=== PATIENT | male | born 1960 | race Caucasian/White ===

== ENCOUNTER 2018-01-20 16:27 | Emergency (ER) | payer OTHER ==
--- NOTE | 2018-01-20 17:09 | RAD ---
FRONTAL RADIOGRAPH CHEST: Date: 01-20-18 Comparison: 05-04-16 History: Chest pain, left arm pain. FINDINGS: There is no pneumothorax, focal consolidation, or alveolar edema. Heart and mediastinal contours are within normal limits. IMPRESSION: No acute findings. POS: [facility]
[2018-01-20 17:17] LABS: #Eosinphils 0.1 thou/uL (0.0-0.7); #Lymphocytes 1.3 thou/uL (1.20-3.40); #Monocytes 0.4 thou/uL (0.11-0.59); %Basophils 0.1 % (0.0-1.0); %Lymphocytes 26.2 % (21.0-51.0); %Monocytes 8.8 % (0.0-10.0); %Neutrophils 62.9 % (42.0-75.0); Hemoglobin 15.7 g/dL (14.0-18.0); Mean Corpuscular HGB CONC 35.2 g/dL (32.0-36.0); Mean Corpuscular Hemoglobin 31.2 pg (27.0-31.0); Mean Corpuscular Volume 88.8 fl (80.0-94.0); Mean Platelet Volume 7.3 fL (7.4-10.4); Platelet Count 152 thou/uL (130-400); Red Blood Cell (RBC) Count 5.04 mill/uL (4.70-6.10); White Blood Cell (WBC) Count 4.8 thou/uL (4.8-10.8)
[2018-01-20 17:40] LABS: ALT (SGPT) 25 U/L (8-55); AST (SGOT) 20 U/L (5-34); Albumin 4.5 g/dL (3.5-5.0); Alkaline Phosphatase 108 U/L (40-150); Anion Gap 10 mmol/L (10-20); BUN (Urea Nitrogen) 16 mg/dL (8.4-25.7); Bilirubin, Total 0.7 mg/dL (0.2-1.2); CK (CPK) 161 U/L (30-200); Calc. Creatinine Clearance 0 mL/min (70-130); Calcium 9.6 mg/dL (7.8-10.44); Carbon Dioxide 24 mmol/L (22-29); Chloride 107 mmol/L (98-107); Estimated GFR-MDRD 76; Glucose 100 mg/dL (70-105); Lipase 22 U/L (8-78); Potassium 4.1 mmol/L (3.5-5.1); Protein, Total 7.5 g/dL (6.0-8.3); Sodium 137 mmol/L (136-145)
[2018-01-20 17:49] LABS: CKMB 1.1 ng/mL (0-6.6); Troponin I Less than 0.010 ng/mL (< 0.028)
[2018-01-20] MEDS ORDERED: Nitroglycerin 0.4 MG TAB (25 Tab Bottle) ONE (19:14)
[2018-01-20 20:43] LABS: Troponin I 0.012 ng/mL (< 0.028)
--- NOTE | 2018-02-20 15:05 | EKG ---
Test Reason : Blood Pressure : / mmHG Vent. Rate : 056 BPM Atrial Rate : 056 BPM P-R Int : 176 ms QRS Dur : 090 ms QT Int : 420 ms P-R-T Axes : 033 014 016 degrees QTc Int : 405 ms Sinus bradycardia Otherwise normal ECG Confirmed by KAILEE MEZA ([id number]), publications editor PAYTON SPENCER ([id number]) on 02/20/2018 3:04:13 PM Referred By: Confirmed By:KAILEE MEZA
== END 2018-01-20 21:43 | disposition home or self-care (01) ==
LOC: ERS 16:27
DX: R07.89 Other chest pain (principal); E78.5 Hyperlipidemia, unspecified; F17.220 Nicotine dependence, chewing tobacco, uncomplicated; I25.10 Atherosclerotic heart disease of native coronary artery without angina pectoris; I25.2 Old myocardial infarction; Z79.82 Long term (current) use of aspirin; Z79.899 Other long term (current) drug therapy
CPT/HCPCS: 36415; 71045; 80053; 82550; 82553; 83690; 84484; 85025; 93005

== ENCOUNTER 2022-07-03 22:05 | Observation (INO) | payer OTHER ==
[2022-07-03] MEDS ORDERED: Ketorolac Tromethamine 30 MG/ML VIAL ONE (23:03)
[2022-07-03] MEDS ORDERED: HYDROmorphone 0.5 MG/0.5 ML SYRINGE ONE (23:03)
[2022-07-03 23:25] LABS: #Eosinphils 0.1 thou/uL (0.0-0.7); #Monocytes 0.6 thou/uL (0.11-0.59); #Neutrophils 3.3 thou/uL (1.40-6.50); %Basophils 0.3 % (0.0-1.0); %Eosinophils 1.7 % (0.0-10.0); %Lymphocytes 19.9 % (21.0-51.0); %Monocytes 11.2 % (0.0-10.0); %Neutrophils 66.9 % (42.0-75.0); Hemoglobin 15.7 g/dL (14.0-18.0); Mean Corpuscular HGB CONC 34.2 g/dL (32.0-36.0); Mean Corpuscular Hemoglobin 32.1 pg (27.0-31.0); Mean Corpuscular Volume 93.9 fL (78.0-98.0); Mean Platelet Volume 7.6 fL (7.4-10.4); Platelet Count 139 thou/uL (130-400); RBC Distribution Width 12.3 % (11.5-14.5); Red Blood Cell (RBC) Count 4.89 mill/uL (4.70-6.10); White Blood Cell (WBC) Count 4.9 thou/uL (4.8-10.8)
[2022-07-03] MEDS ORDERED: Fentanyl 100 MCG/2 ML VIAL ONE (23:30)
[2022-07-04 00:10] LABS: ALT (SGPT) 18 U/L (8-55); AST (SGOT) 21 U/L (5-34); Albumin 4.5 g/dL (3.4-4.8); Alkaline Phosphatase 100 U/L (40-110); Anion Gap 17 mmol/L (10-20); BUN (Urea Nitrogen) 11 mg/dL (8.4-25.7); Bilirubin, Total 0.8 mg/dL (0.2-1.2); Calc. Creatinine Clearance 0 mL/min (70-130); Calcium 9.5 mg/dL (7.8-10.44); Carbon Dioxide 23 mmol/L (23-31); Chloride 102 mmol/L (98-107); Estimated GFR 85; Globulin 2.7 g/dL (2.4-3.5); Glucose 92 mg/dL (80-115); Potassium 4.3 mmol/L (3.5-5.1); Protein, Total 7.2 g/dL (5.8-8.1); Sodium 138 mmol/L (136-145)
[2022-07-04] MEDS ORDERED: HYDROcodone/Acetaminophen 5/325 mg Tablet PO PRN (02:36)
[2022-07-04] MEDS ORDERED: Ondansetron ODT 4 MG TAB PO PRN (02:36)
[2022-07-04] MEDS ORDERED: Ondansetron PF 4 MG/2 ML Vial IVP PRN (02:36)
[2022-07-04] MEDS ORDERED: Acetaminophen 325 MG TAB PO PRN (02:36)
[2022-07-04] MEDS: Fentanyl 100 MCG/2 ML VIAL SLOW IVP PRN ×2 (03:39→08:55)
[2022-07-04 04:26] VITALS: BMI 32.8
[2022-07-04 05:02] LABS: #Basophils 0.1 thou/uL (0.0-0.2); #Eosinphils 0.1 thou/uL (0.0-0.7); #Monocytes 0.5 thou/uL (0.11-0.59); #Neutrophils 3.1 thou/uL (1.40-6.50); %Basophils 1.2 % (0.0-1.0); %Eosinophils 1.5 % (0.0-10.0); %Monocytes 9.4 % (0.0-10.0); %Neutrophils 65.8 % (42.0-75.0); Hemoglobin 13.7 g/dL (14.0-18.0); Mean Corpuscular HGB CONC 34.7 g/dL (32.0-36.0); Mean Corpuscular Hemoglobin 32.6 pg (27.0-31.0); Mean Corpuscular Volume 93.8 fL (78.0-98.0); Mean Platelet Volume 7.3 fL (7.4-10.4); Platelet Count 137 thou/uL (130-400); RBC Distribution Width 12.4 % (11.5-14.5); Red Blood Cell (RBC) Count 4.22 mill/uL (4.70-6.10); White Blood Cell (WBC) Count 4.7 thou/uL (4.8-10.8)
[2022-07-04 05:12] LABS: SARS-CoV-2 NAA Rapid Test Not Detected (NotDetected)
[2022-07-04] MEDS: Morphine 4 MG/ML VIAL SLOW IVP PRN (05:18)
[2022-07-04] MEDS: Ketorolac Tromethamine 30 MG/ML VIAL IVP SCH ×2 (05:19→11:41)
[2022-07-04 05:23] LABS: Anion Gap 13 mmol/L (10-20); BUN (Urea Nitrogen) 12 mg/dL (8.4-25.7); Calc. Creatinine Clearance 109 mL/min (70-130); Calcium 9.3 mg/dL (7.8-10.44); Carbon Dioxide 25 mmol/L (23-31); Chloride 102 mmol/L (98-107); Estimated GFR 88; Glucose 114 mg/dL (80-115); Sodium 136 mmol/L (136-145)
[2022-07-04] MEDS ORDERED: Zolpidem Tartrate 5 MG TAB PO PRN (13:16)
[2022-07-04] MEDS: HYDROmorphone 0.5 MG/0.5 ML SYRINGE SLOW IVP PRN ×2 (14:24→20:19)
[2022-07-04] MEDS ORDERED: Clindamycin/D5W 900 MG in Premix Bag 1 BAG IVPB SCH (15:00)
[2022-07-04] MEDS: HYDROcodone/Acetaminophen 5/325 mg Tablet PO PRN ×2 (16:08→23:41)
[2022-07-04] MEDS: Rosuvastatin 20 MG TAB PO SCH (20:18)
[2022-07-05] MEDS: Morphine 4 MG/ML VIAL SLOW IVP PRN ×5 (04:36→23:41)
[2022-07-05] MEDS ORDERED: Vancomycin 1.5 GRAM/300 ML BAG 1.5 GM in Premix Bag 1 BAG IVPB SCH (07:15)
[2022-07-05] MEDS ORDERED: Fentanyl 100 MCG/2 ML VIAL SLOW IVP PRN ×2 (07:16→11:50)
[2022-07-05] MEDS ORDERED: CEFAZOLIN 2 GM in Sodium Chloride 0.9% 100 ML IVPB SCH (07:30)
[2022-07-05] MEDS: Losartan 25 MG TAB PO SCH (07:46)
[2022-07-05] MEDS ORDERED: Aspirin 81 mg Enteric Coated Tablet PO SCH (09:00)
[2022-07-05] MEDS ORDERED: Vancomycin 1.5 GRAM/300 ML BAG IVPB SCH (10:30)
[2022-07-05] MEDS ORDERED: Sodium Chloride 0.9% 100 ML ONE ×2 (11:41→12:21)
[2022-07-05] MEDS ORDERED: Tranexamic Acid 1,000 MG/10 ML VIAL ONE (11:41)
[2022-07-05] MEDS ORDERED: Promethazine HCl 25 MG/ML VIAL IM PRN ×2 (11:50→14:20)
[2022-07-05] MEDS ORDERED: Zolpidem Tartrate 5 MG TAB PO PRN (11:50)
[2022-07-05] MEDS ORDERED: Acetaminophen 325 MG TAB PO PRN (11:50)
[2022-07-05] MEDS ORDERED: Ondansetron PF 4 MG/2 ML Vial IVP PRN (11:50)
[2022-07-05] MEDS ORDERED: diphenhydrAMINE 25 MG CAP PO PRN (11:50)
[2022-07-05] MEDS ORDERED: Bupivacaine PF 0.5% 30 ML VIAL ONE (12:13)
[2022-07-05] MEDS ORDERED: CEFAZOLIN 2 GM VIAL ONE (12:21)
[2022-07-05] MEDS ORDERED: fentaNYL Citrate/PF 100 MCG/2 ML SYRINGE ONE ×2 (12:24→14:10)
[2022-07-05] MEDS ORDERED: Ondansetron PF 4 MG/2 ML Vial ONE (12:40)
[2022-07-05] MEDS ORDERED: Dexamethasone 20 MG/5 ML VIAL ONE (12:40)
[2022-07-05] MEDS ORDERED: Glycopyrrolate 0.2 MG/ML 5 ML SYRINGE ONE (12:40)
[2022-07-05] MEDS ORDERED: PROPOFOL 200 MG/20 ML VIAL ONE (12:40)
[2022-07-05] MEDS ORDERED: Lidocaine 1% MPF 2 ML VIAL ONE (12:40)
[2022-07-05] MEDS ORDERED: Rocuronium Bromide 10 MG/ML (10ML VIAL) ONE (12:40)
[2022-07-05] MEDS ORDERED: NEOSTIGMINE 3 MG/3 ML SYR 3 MG/3 ML SYRINGE ONE (12:40)
[2022-07-05] MEDS ORDERED: HYDROmorphone 2 MG/ML VIAL SLOW IVP PRN (14:20)
[2022-07-05] MEDS ORDERED: Ondansetron HCl/PF 4 MG/2 ML Vial IVP PRN (14:20)
[2022-07-05] MEDS ORDERED: Ketorolac Tromethamine 30 MG/ML VIAL IVP PRN (14:20)
[2022-07-05] MEDS ORDERED: Promethazine HCl 25 MG/ML VIAL IVPB PRN (14:20)
[2022-07-05] MEDS: HYDROcodone/Acetaminophen 10/325 mg Tablet PO PRN ×3 (15:21→23:39)
[2022-07-05] MEDS: Sodium Chloride 0.9% 1,000 ML IV SCH ×2 (15:38→21:34)
[2022-07-05] MEDS: CEFAZOLIN 2 GM in Sodium Chloride 0.9% 100 ML IVPB SCH (17:20)
[2022-07-05] MEDS: Senokot S 8.6-50 MG TAB PO SCH (19:31)
[2022-07-05] MEDS: Ferrous Gluconate 324 MG TAB PO SCH (19:31)
[2022-07-05] MEDS: Rosuvastatin 20 MG TAB PO SCH (19:37)
[2022-07-05] MEDS: Aspirin 81 mg Enteric Coated Tablet PO SCH (19:37)
[2022-07-06] MEDS: CEFAZOLIN 2 GM in Sodium Chloride 0.9% 100 ML IVPB SCH (01:44)
[2022-07-06 05:31] LABS: Hemoglobin 13.3 g/dL (14.0-18.0); Mean Corpuscular HGB CONC 34.2 g/dL (32.0-36.0); Mean Corpuscular Hemoglobin 32.1 pg (27.0-31.0); Mean Corpuscular Volume 93.9 fL (78.0-98.0); Mean Platelet Volume 7.7 fL (7.4-10.4); Platelet Count 158 thou/uL (130-400); RBC Distribution Width 12.3 % (11.5-14.5); Red Blood Cell (RBC) Count 4.14 mill/uL (4.70-6.10); White Blood Cell (WBC) Count 8.7 thou/uL (4.8-10.8)
[2022-07-06 05:55] LABS: Anion Gap 14 mmol/L (10-20); BUN (Urea Nitrogen) 13 mg/dL (8.4-25.7); Calc. Creatinine Clearance 103 mL/min (70-130); Calcium 9.2 mg/dL (7.8-10.44); Carbon Dioxide 24 mmol/L (23-31); Chloride 104 mmol/L (98-107); Estimated GFR 82; Glucose 145 mg/dL (80-115); Potassium 4.4 mmol/L (3.5-5.1); Sodium 138 mmol/L (136-145)
[2022-07-06] MEDS: Sodium Chloride 0.9% 1,000 ML IV SCH ×2 (08:17→16:42)
[2022-07-06] MEDS: Aspirin 81 mg Enteric Coated Tablet PO SCH ×2 (08:47→20:15)
[2022-07-06] MEDS: Senokot S 8.6-50 MG TAB PO SCH ×2 (08:47→20:15)
[2022-07-06] MEDS: HYDROcodone/Acetaminophen 10/325 mg Tablet PO PRN ×2 (08:47→16:09)
[2022-07-06] MEDS: Multivitamin W/ Minerals 1 TAB PO SCH (08:48)
[2022-07-06] MEDS: Losartan 25 MG TAB PO SCH (08:59)
[2022-07-06] MEDS: Ferrous Gluconate 324 MG TAB PO SCH ×2 (16:11→20:15)
[2022-07-06] MEDS: Rosuvastatin 20 MG TAB PO SCH (20:15)
[2022-07-06] MEDS ORDERED: chlorproMAZINE HCl 25 MG TAB PO SCH (22:00)
[2022-07-07] MEDS: HYDROcodone/Acetaminophen 10/325 mg Tablet PO PRN ×4 (00:53→21:35)
[2022-07-07] MEDS: Sodium Chloride 0.9% 1,000 ML IV SCH ×2 (06:26→15:38)
[2022-07-07] MEDS: Losartan 25 MG TAB PO SCH (08:41)
[2022-07-07] MEDS: Ferrous Gluconate 324 MG TAB PO SCH ×2 (08:42→20:01)
[2022-07-07] MEDS: Aspirin 81 mg Enteric Coated Tablet PO SCH ×2 (08:42→20:02)
[2022-07-07] MEDS: Senokot S 8.6-50 MG TAB PO SCH ×2 (08:42→20:02)
[2022-07-07] MEDS: Multivitamin W/ Minerals 1 TAB PO SCH (08:42)
[2022-07-07] MEDS ORDERED: Milk Of Magnesia 30 ML UDCUP PO PRN (19:36)
[2022-07-07] MEDS ORDERED: Bisacodyl 10 MG SUPP PR PRN (19:37)
[2022-07-07] MEDS ORDERED: Polyethylene Glycol 3350 17 GM Packet PO SCH (19:45)
[2022-07-07] MEDS: Rosuvastatin 20 MG TAB PO SCH (20:01)
[2022-07-08] MEDS: Cyclobenzaprine 10 MG TAB PO PRN ×2 (01:38→10:29)
[2022-07-08] MEDS: Sodium Chloride 0.9% 1,000 ML IV SCH ×2 (01:46→10:29)
[2022-07-08] MEDS: HYDROcodone/Acetaminophen 10/325 mg Tablet PO PRN ×3 (02:46→13:45)
[2022-07-08 08:31] VITALS: TEMP 97.7
[2022-07-08] MEDS ORDERED: Losartan 25 MG TAB PO SCH (09:00)
[2022-07-08] MEDS: Polyethylene Glycol 3350 17 GM Packet PO SCH ×2 (09:09→09:15)
[2022-07-08] MEDS: Aspirin 81 mg Enteric Coated Tablet PO SCH (09:10)
[2022-07-08] MEDS: Ferrous Gluconate 324 MG TAB PO SCH (09:14)
[2022-07-08] MEDS: Multivitamin W/ Minerals 1 TAB PO SCH (09:14)
[2022-07-08] MEDS: Senokot S 8.6-50 MG TAB PO SCH (09:14)
[2022-07-08 11:49] VITALS: BP 120/74
== END 2022-07-08 14:10 | disposition home or self-care (01) ==
LOC: ERS 22:05 → MSONC 07-04 01:13 → INTOOBSV 07-04 01:13 → SURG A 07-05 13:19
PROVIDERS: ADMIT Internal Medicine; ATTEND Internal Medicine
PROC: 0SR904A Replacement of Right Hip Joint with Ceramic on Polyethylene Synthetic Substitute, Uncemented, Open Approach (ICD-10-PCS; principal; 2022-07-05)
DX: M87.051 Idiopathic aseptic necrosis of right femur (principal); M16.11 Unilateral primary osteoarthritis, right hip; I10 Essential (primary) hypertension; I25.10 Atherosclerotic heart disease of native coronary artery without angina pectoris; E78.00 Pure hypercholesterolemia, unspecified; I25.2 Old myocardial infarction; F17.220 Nicotine dependence, chewing tobacco, uncomplicated; Z79.82 Long term (current) use of aspirin; Z79.899 Other long term (current) drug therapy; Z88.0 Allergy status to penicillin; Z95.5 Presence of coronary angioplasty implant and graft; Z96.642 Presence of left artificial hip joint; Z20.822 Contact with and (suspected) exposure to COVID-19; W18.30XA Fall on same level, unspecified, initial encounter
CPT/HCPCS: 36415; 72170; 72192; 80048; 80053; 84484; 85025; 85027; 93005; 96374; 96375; C1776; J0690; J1100; J1170; J1885; J2270; J2405; J2704; J3010; J3370; J3490; J7050; Q0161; S0020; U0002

== ENCOUNTER 2023-06-15 01:07 | Observation (INO) | payer OTHER ==
[2023-06-15] MEDS ORDERED: Nitroglycerin 2% Ointment 1 INCH/1 GM Packet ONE (01:28)
[2023-06-15] MEDS ORDERED: Aspirin Chewable 81 MG TAB ONE (01:28)
[2023-06-15 01:37] LABS: #Eosinphils 0.1 thou/uL (0.0-0.7); #Monocytes 0.4 thou/uL (0.11-0.59); #Neutrophils 2.9 thou/uL (1.40-6.50); %Basophils 0.2 % (0.0-1.0); %Eosinophils 1.9 % (0.0-10.0); %Lymphocytes 28.2 % (21.0-51.0); %Monocytes 8.7 % (0.0-10.0); %Neutrophils 60.6 % (42.0-75.0); Hematocrit 45.5 % (42.0-52.0); Hemoglobin 15.8 g/dL (14.0-18.0); Mean Corpuscular HGB CONC 34.7 g/dL (32.0-36.0); Mean Corpuscular Volume 89.4 fl (78.0-98.0); Mean Platelet Volume 9.5 fL (7.4-10.4); Platelet Count 148 10x3/uL (130-400); RBC Distribution Width 12.7 % (11.5-14.5); Red Blood Cell (RBC) Count 5.09 mill/uL (4.70-6.10); White Blood Cell (WBC) Count 4.9 10x3/uL (4.8-10.8)
[2023-06-15 01:59] LABS: ALT (SGPT) 18 U/L (8-55); AST (SGOT) 20 U/L (5-34); Albumin 4.5 g/dL (3.4-4.8); Alkaline Phosphatase 84 U/L (40-110); Anion Gap 14 mmol/L (10-20); BUN (Urea Nitrogen) 14 mg/dL (8.4-25.7); Bilirubin, Total 0.6 mg/dL (0.2-1.2); Calc. Creatinine Clearance 0 mL/min (70-130); Calcium 10.1 mg/dL (7.8-10.44); Carbon Dioxide 23 mmol/L (23-31); Chloride 105 mmol/L (98-107); Estimated GFR 78; Glucose 95 mg/dL (80-115); Potassium 4.1 mmol/L (3.5-5.1); Protein, Total 7.5 g/dL (5.8-8.1); Sodium 138 mmol/L (136-145)
[2023-06-15 02:03] LABS: Troponin I Less than 0.010 ng/mL (< 0.028)
[2023-06-15] MEDS ORDERED: Nitroglycerin 0.4 MG TAB (25 Tab Bottle) SL PRN (03:44)
[2023-06-15] MEDS ORDERED: Senokot S 8.6-50 MG TAB PO PRN (03:46)
[2023-06-15] MEDS ORDERED: Ondansetron ODT 4 MG TAB PO PRN (03:46)
[2023-06-15] MEDS ORDERED: Calcium Carbonate 500 MG ChewTAB PO PRN (03:46)
[2023-06-15] MEDS ORDERED: Acetaminophen 325 MG TAB PO PRN (03:46)
[2023-06-15 06:00] VITALS: BMI 31.4
[2023-06-15 07:33] LABS: Troponin I Less than 0.010 ng/mL (< 0.028)
[2023-06-15] MEDS ORDERED: ALPRAZolam 0.5 MG TAB PO PRN (08:02)
[2023-06-15] MEDS: Aspirin Chewable 81 MG TAB PO SCH (08:44)
[2023-06-15] MEDS: Sertraline 25 MG TAB PO SCH (08:44)
[2023-06-15] MEDS: Rosuvastatin 20 MG TAB PO SCH (08:44)
[2023-06-15] MEDS ORDERED: Famotidine 20 MG TAB PO SCH (09:00)
[2023-06-15 10:22] LABS: Troponin I Less than 0.010 ng/mL (< 0.028)
[2023-06-15] MEDS ORDERED: Iopamidol-370 76% 500 ML MDV (1 ML CHARGE) ONE (11:55)
[2023-06-16] MEDS: Zolpidem Tartrate 5 MG TAB PO PRN ×2 (00:10→21:36)
[2023-06-16 06:31] LABS: #Eosinphils 0.1 thou/uL (0.0-0.7); #Monocytes 0.5 thou/uL (0.11-0.59); #Neutrophils 2.9 thou/uL (1.40-6.50); %Basophils 0.4 % (0.0-1.0); %Eosinophils 1.7 % (0.0-10.0); %Lymphocytes 25.8 % (21.0-51.0); %Neutrophils 61.9 % (42.0-75.0); Hematocrit 43.4 % (42.0-52.0); Mean Corpuscular HGB CONC 34.6 g/dL (32.0-36.0); Mean Corpuscular Hemoglobin 30.7 pg (27.0-31.0); Mean Corpuscular Volume 88.9 fl (78.0-98.0); Platelet Count 130 10x3/uL (130-400); RBC Distribution Width 12.7 % (11.5-14.5); Red Blood Cell (RBC) Count 4.88 mill/uL (4.70-6.10); White Blood Cell (WBC) Count 4.7 10x3/uL (4.8-10.8)
[2023-06-16 06:55] LABS: Anion Gap 13 mmol/L (10-20); BUN (Urea Nitrogen) 12 mg/dL (8.4-25.7); Calc. Creatinine Clearance 92 mL/min (70-130); Calcium 9.3 mg/dL (7.8-10.44); Carbon Dioxide 23 mmol/L (23-31); Cardiac Risk 3.5 (Less than 4.5); Chloride 104 mmol/L (98-107); Cholesterol 136 mg/dl (< 200 Desired); Estimated GFR 76; Glucose 95 mg/dL (80-115); HDL Cholesterol 39 mg/dL (>60 Neg Risk); LDL Cholesterol, Calculated 53 mg/dL; Potassium 3.9 mmol/L (3.5-5.1); Sodium 136 mmol/L (136-145); Triglycerides 219 mg/dL (Less than 150)
[2023-06-16] MEDS: Sertraline 25 MG TAB PO SCH (09:17)
[2023-06-16] MEDS: Aspirin Chewable 81 MG TAB PO SCH (09:17)
[2023-06-16] MEDS: Rosuvastatin 20 MG TAB PO SCH (09:17)
[2023-06-16] MEDS: Losartan 25 MG TAB PO SCH (09:32)
[2023-06-16] MEDS ORDERED: Icosapent Ethyl 1 GM CAPSULE PO SCH (11:30)
[2023-06-16] MEDS: Icosapent Ethyl 1 GM CAPSULE PO SCH (18:30)
[2023-06-17] MEDS: Losartan 25 MG TAB PO SCH (05:58)
[2023-06-17] MEDS: Rosuvastatin 20 MG TAB PO SCH (05:58)
[2023-06-17] MEDS: Sertraline 25 MG TAB PO SCH (05:58)
[2023-06-17] MEDS: Aspirin Chewable 81 MG TAB PO SCH (05:58)
[2023-06-17] MEDS: Icosapent Ethyl 1 GM CAPSULE PO SCH (06:00)
[2023-06-17] MEDS ORDERED: Heparin 10,000 UNITS/ 10 ML VIAL ONE (06:33)
[2023-06-17] MEDS ORDERED: Lidocaine 1% (PF) 30 ML VIAL ONE (06:33)
[2023-06-17] MEDS ORDERED: Adenosine 6 MG/2 ML VIAL ONE (06:33)
[2023-06-17] MEDS ORDERED: Verapamil 5 MG/2 ML VIAL ONE (06:33)
[2023-06-17] MEDS ORDERED: Nitroglycerin 50 MG/250 ML BOT 0 ML ONE (06:35)
[2023-06-17] MEDS ORDERED: Midazolam HCl 2 mg/2 ml Vial ONE (07:57)
[2023-06-17] MEDS ORDERED: fentaNYL 50 mcg/mL 1 mL Vial ONE (07:57)
[2023-06-17] MEDS ORDERED: Communication Order-Pharmacy FS SCH (08:00)
[2023-06-17] MEDS ORDERED: Nitroglycerin 0.4 MG TAB (25 Tab Bottle) SL PRN (08:41)
[2023-06-17] MEDS ORDERED: Sodium Chloride 0.9% 200 ML IV PRN (08:41)
[2023-06-17] MEDS ORDERED: Acetaminophen/Codeine 30-300mg Tablet PO PRN ×2 (08:41)
[2023-06-17] MEDS ORDERED: Sodium Chloride 0.9% 1,000 ML IV SCH (08:45)
[2023-06-17] MEDS ORDERED: Metoprolol Tartrate 25 MG TAB PO SCH ×2 (09:00)
[2023-06-17] MEDS ORDERED: Iopamidol 300 61% 100 ML VIAL FS ONE (09:21)
[2023-06-17 12:19] VITALS: BP 97/64; TEMP 97.5
== END 2023-06-17 14:08 | disposition home or self-care (01) ==
LOC: ERS 01:07 → 2SW 04:05
PROVIDERS: ADMIT Student in an Organized Health Care Education/Training Program; ATTEND Hospitalist
DX: I25.10 Atherosclerotic heart disease of native coronary artery without angina pectoris (principal); I08.1 Rheumatic disorders of both mitral and tricuspid valves; R00.1 Bradycardia, unspecified; E78.5 Hyperlipidemia, unspecified; I10 Essential (primary) hypertension; F17.200 Nicotine dependence, unspecified, uncomplicated; R94.39 Abnormal result of other cardiovascular function study; Z96.649 Presence of unspecified artificial hip joint; Z88.0 Allergy status to penicillin; Z88.8 Allergy status to other drugs, medicaments and biological substances; Z79.82 Long term (current) use of aspirin; Z79.899 Other long term (current) drug therapy
CPT/HCPCS: 36415; 71045; 71275; 80048; 80053; 80061; 83880; 84484; 85025; 85379; 93005; 93306; 93458; 99152; C1769; C1894; G0378; J0153; J1644; J2001; J2250; J3010; Q9967